=== PATIENT | female | born 1995 | race Two or more races ===

== ENCOUNTER → 2025-04-18 | Outpatient (CLI) | payer BC, SELFPAY ==
--- NOTE | 2025-04-18 09:00 | XR_ITS ---
Examination: Esophagram standard 17 spot fluoroscopic films of the esophagus Fluoroscopy Upright PA chest single view Soft tissue lateral neck single view Date and time: April 18, 2025 at 0929 hours INDICATIONS: Preop bariatric surgery. FINDINGS: Upright PA chest single view demonstrates normal heart size, clear lungs Normal epiglottis on the soft tissue lateral neck Patient swallowed thin barium with 17 spot fluoroscopic films of the esophagus Primary peristaltic esophageal waves No gastroesophageal reflux No constricting esophageal lesion IMPRESSION: Negative esophagram Fluoroscopy 0.21 minutes 17 spot fluoroscopic films of the esophagus
== END | disposition home or self-care (01) ==
LOC: CDIM 08:39
PROVIDERS: PCP Internal Medicine; Referring Provider Surgery; Visit Provider Surgery
DX: E66.01 Morbid (severe) obesity due to excess calories (principal); Z01.818 Encounter for other preprocedural examination
CPT/HCPCS: 74220; A4649